=== PATIENT | male | born 1945 | race Caucasian/White ===

== ENCOUNTER 2023-02-02 13:38 | Emergency (ER) | payer MEDICARE, OTHER ==
[~2023-02-02] VITALS: Ht 180.3 cm; Wt 68.2 kg
[2023-02-02] MEDS ORDERED: HYDROcodone/acetaminophen 5mg/325mg tablet PO STA (15:17)
--- NOTE | 2023-02-02 15:37 | NUR ---
pt states he is bradycardic at baseline
[2023-02-02] MEDS ORDERED: NAPR-56 PO (16:06)
--- NOTE | 2023-02-02 16:34 | NUR ---
PT FITTED FOR CRUTCHES AND EDUCATED BY RACHELL VILLALOBOS
[2023-02-02 16:35] VITALS: BP 153/132; PULSE 55; RESP 16; TEMP 98.6; O2SAT 98
== END 2023-02-02 16:37 | disposition home or self-care (01) ==
LOC: ER 13:39
DX: S82.51XA Displaced fracture of medial malleolus of right tibia, initial encounter for closed fracture (principal); W01.0XXA Fall on same level from slipping, tripping and stumbling without subsequent striking against object, initial encounter; Y93.89 Activity, other specified; Y92.89 Other specified places as the place of occurrence of the external cause; Y99.8 Other external cause status
CPT/HCPCS: 29515; 73610; 99284; L4360